=== PATIENT | female | born 1970 | race Caucasian/White ===

== ENCOUNTER → 2017-09-11 | Outpatient (CLI) | payer OTHER ==
[~2017-09-11] MED LIST: ASPI81TA28 PO; LUTE15CA PO; MULT-513 PO; OMEG10007 PO; RSTOPS OP
--- NOTE | 2017-09-11 08:46 | DIAGNOSTIC IMAGING REPORT ---
L HAND MIN 3 VIEWS ROUTINE CLINICAL HISTORY: ARTHRITIS pain COMPARISON: None. DISCUSSION: The bones and joint spaces appear intact. There is no evidence of fracture, dislocation or bony disease. There is no evidence for soft tissue swelling. IMPRESSION: Negative study. The above report was generated using voice recognition software. It may contain grammatical, syntax or spelling errors. Electronically signed by: Lele Cotter M.D. 09/11/2017 8:44 AM Dictated Date/Time: 09/11/2017 8:42 AM
--- NOTE | 2017-09-11 08:46 | DIAGNOSTIC IMAGING REPORT ---
RIGHT HAND 3 VIEWS CLINICAL HISTORY: Right hand pain. FINDINGS: 3 views of the right hand are obtained. No prior studies are available for comparison at the time of dictation. The skeletal structures are well mineralized. No fracture is seen. The joint spaces of the hand are well-maintained. No erosive change is identified. The overlying soft tissues are within normal limits. IMPRESSION: Unremarkable radiographic assessment of the right hand. Electronically signed by: Sam Rock M.D. 09/11/2017 8:44 AM Dictated Date/Time: 09/11/2017 8:44 AM
== END | disposition home or self-care (01) ==
LOC: C.RADBC 08:02
PROVIDERS: ATTEND Family Medicine
DX: M79.643 Pain in unspecified hand (principal); M19.90 Unspecified osteoarthritis, unspecified site